=== PATIENT | female | born 1965 | race Two or more races ===

== ENCOUNTER 2021-01-27 07:34 | Day surgery (SDC) | payer BC, OTHER ==
[~2021-01-27 07:34] MED LIST: Glycopyrrolate 0.2 MG/ML SDV ONE; Lactated Ringers 1,000 ML IV SCH; Lidocaine 2% 5 ML SDV ONE; Midazolam 1 MG/ML 2 ML SDV ONE; Ondansetron 4 MG/2 ML SDV ONE; Propofol 200 MG/20 ML SDV ONE; Rocuronium Bromide 50 MG/5 ML Syringe ONE; Sodium Chloride 0.9% 10 ML SDV IV PRN; Sodium Chloride 0.9% 10 ML Syringe FLUSH PRN; Sodium Chloride 0.9% 2.5 ML Syringe FLUSH PRN; ceFAZolin 2 GM in Premix Bag 1 BAG IV ONE; fentaNYL 250 MCG/5 ML SDV ONE
[2021-01-27] MEDS ORDERED: Glycopyrrolate 0.2 MG/ML SDV ONE (07:51)
[2021-01-27] MEDS ORDERED: Ketorolac 30 MG/ML SDV ONE (07:51)
--- NOTE | 2021-01-27 08:11 | PCM.PREANE ---
Preanesthetic Assessment - Anesthesia/Transfusion/Family Hx Anesthesia History: Prior Anesthesia Without Reaction Family History of Anesthesia Reaction: No Transfusion History: No Prior Transfusion(s) Intubation History: Unknown - Review of Systems General: No Symptoms Pulmonary: No Symptoms Cardiovascular: No Symptoms Gastrointestinal: No Symptoms Neurological: No Symptoms Other: Reports: None - Physical Assessment Height: 5 ft 4 in Weight: 88.451 kg ASA Class: 2 Mental Status: Alert & Oriented x3 Airway Class: Mallampati = 3 Dentition: Reports: Normal Dentition Thyro-Mental Finger Breadths: 3 (very wide neck) Mouth Opening Finger Breadths: 3 ROM/Head Extension: Full Lungs: Clear to Auscultation, Normal Respiratory Effort Cardiovascular: Regular Rate, Regular Rhythm - Allergies Allergies/Adverse Reactions: Allergies Allergy/AdvReac Type Severity Reaction Status Date / Time doxycycline Allergy Rash Verified 01/23/21 12:21 Sulfa (Sulfonamide Allergy Rash Verified 01/23/21 12:21 Antibiotics) - Blood Blood Available: No - Anesthesia Plan Pre-Op Medication Ordered: None - Acknowledgements Anesthesia Type Planned: General Anesthesia Pt an Appropriate Candidate for the Planned Anesthesia: Yes Alternatives and Risks of Anesthesia Discussed w Pt/Guardian: Yes Pt/Guardian Understands and Agrees with Anesthesia Plan: Yes PreAnesthesia Questionnaire HEENT History: Reports: Other (See Below) Other HEENT History: wears glasses Cardiovascular History: Reports: High Cholesterol, Hypertension Respiratory History: Reports: None Gastrointestinal History: Reports: None, Hiatal Hernia Genitourinary History: Reports: None 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 breast) Dermatologic History: Reports: None - Past Surgical History Head Surgeries/Procedures: Reports: None HEENT Surgical History: Reports: None Cardiovascular Surgical History: Reports: None Respiratory Surgical History: Reports: None GI Surgical History: Reports: None Female Surgical History: Reports: Breast Biopsy, Cystectomy (left ovarian (l aparoscopic) 08/13), D&C, Mastectomy Other Female Surgeries/Procedures: rt radical mastectomy Endocrine Surgical History: Reports: None Neurological Surgical History: Reports: None Musculoskeletal Surgical History: Reports: None Oncologic Surgical History: Reports: Mastectomy Dermatological Surgical History: Reports: None - SUBSTANCE USE Tobacco Use Status *Q: Never Tobacco User Recreational Drug Use History: No - HOME MEDS Home Medications: Home Meds Aspirin [Ecotrin EC] 81 mg PO DAILY 08/19/19 [History] Losartan [Cozaar] 25 mg PO QAM 08/19/19 [History] Mirtazapine 15 mg PO BEDTIME 08/19/19 [History] PARoxetine HCL [Paxil] 30 mg PO BID 08/19/19 [History] Simvastatin 80 mg PO BEDTIME 08/19/19 [History] Venlafaxine [Effexor XR] 150 mg PO QAM 08/19/19 [History] Ibuprofen [Motrin] 400 mg PO Q6H PRN 01/23/21 [History] metFORMIN [Glucophage] 500 mg PO BID 01/23/21 [History] - CURRENT (IN HOUSE) MEDS Current Meds: Current Medications Lactated Ringer's (Ringers, Lactated) 1,000 mls @ 125 mls/hr IV ASDIRECTED JOSÉ MANUEL Sodium Chloride (Saline Flush) 2.5 ml FLUSH ASDIRECTED PRN PRN Reason: Keep Vein Open Sodium Chloride (Normal Saline) 10 ml IV ASDIRECTED PRN PRN Reason: IV Use Discontinued Medications Fentanyl (Sublimaze) Confirm Administered Dose 250 mcg .ROUTE .STK-MED ONE Stop: 01/27/21 07:25 Glycopyrrolate (Robinul) Confirm Administered Dose 0.4 mg .ROUTE .STK-MED ONE Stop: 01/27/21 07:26 Glycopyrrolate (Robinul) Confirm Administered Dose 0.6 mg .ROUTE .STK-MED ONE Stop: 01/27/21 07:52 Cefazolin Sodium/Dextrose 2 gm (/ Premix) 50 mls @ 100 mls/hr IV ONETIME ONE Stop: 01/27/21 05:29 Ketorolac Tromethamine (Toradol) Confirm Administered Dose 30 mg .ROUTE .STK-MED ONE Stop: 01/27/21 07:52 Lidocaine (Xylocaine-Mpf 2%) Confirm Administered Dose 5 ml .ROUTE .STK-MED ONE Stop: 01/27/21 07:26 Midazolam HCl (Versed 1 Mg/Ml) Confirm Administered Dose 2 mg .ROUTE .STK-MED ONE Stop: 01/27/21 07:25 Ondansetron HCl (Zofran) Confirm Administered Dose 4 mg .ROUTE .STK-MED ONE Stop: 01/27/21 07:26 Propofol (Diprivan 20 Ml) Confirm Administered Dose 200 mg .ROUTE .STK-MED ONE Stop: 01/27/21 07:24 Rocuronium Charlotte (Rocuronium Charlotte) Confirm Administered Dose 50 mg .ROUTE .STK-MED ONE Stop: 01/27/21 07:27
[2021-01-27] MEDS ORDERED: Acetaminophen 1,000 MG in Premix Bag 1 BAG IV PRN (08:17)
[2021-01-27] MEDS ORDERED: ceFAZolin 1 GM Vial ONE (08:18)
[2021-01-27] MEDS ORDERED: Sodium Chloride 0.9% 20 ML ONE (08:18)
[2021-01-27] MEDS ORDERED: Bupivacaine 0.25% 10 ML SDV ONE (08:31)
[2021-01-27] MEDS ORDERED: Methylene Blue 50 MG/10 ML Ampule ONE (08:31)
[2021-01-27 08:47] LABS: BLOOD UREA NITROGEN,BUN 16 mg/dL (7.0-18.0); CARBON DIOXIDE,CO2 27.9 mmol/L (21.0-32.0); CHLORIDE,CL 106 mmol/L (98-107); GLUCOSE RANDOM 128 mg/dL (74-106); POTASSIUM,K 3.8 mmol/L (3.5-5.1); SODIUM,NA 142 mmol/L (136-145)
[2021-01-27] MEDS ORDERED: HYDROmorphone 2 MG/ML Syringe ONE (09:35)
[2021-01-27] MEDS ORDERED: Furosemide 40 MG/4 ML VIAL ONE (09:38)
[2021-01-27] MEDS ORDERED: Fluorescein 5 ML Vial ONE (09:38)
[2021-01-27] MEDS ORDERED: ePHEDrine 50 MG/ML SDV ONE (10:20)
[2021-01-27] MEDS ORDERED: fentaNYL 100 MCG/2 ML SDV ONE (10:56)
[2021-01-27] MEDS ORDERED: Morphine 4 MG/ML Syringe IVPUSH PRN (11:14)
[2021-01-27] MEDS ORDERED: Ondansetron 4 MG/2 ML SDV IVPUSH PRN (11:14)
[2021-01-27] MEDS ORDERED: Promethazine 25 MG/ML SDV IM PRN (11:14)
[2021-01-27] MEDS ORDERED: Ketorolac 30 MG/ML SDV IVPUSH ONE (11:14)
--- NOTE | 2021-01-27 11:22 | PCM.OPNOTE ---
<Elizabeth Dallas - Last Filed: 01/27/21 11:15> - General Post-Op/Procedure Note Date of Surgery/Procedure: 01/27/21 Operative Procedure(s): Laparoscopic assisted vaginal hysterectomy, bilaterl salpingooophorectomy, cystoscopy, pelvic washings Findings: Uterus with bilateral fallopian tubes and bilateral ovaries - left ovary with cyst. Pre Op Diagnosis: Abnormal uterine bleeding - post-menopausal, symptomatic pelvic mass Post-Op Diagnosis: Same Anesthesia Technique: General ET Tube Primary Surgeon: Joellen Castro Secondary Surgeon: Radha Chen Squirrel Man: Elizabeth Dalals (MS4) Pathology: Uterus, bilateral fallopian tubes & ovaries with left ovarian cyst. Pelvic washings Fluid Replacement, Intraop: 2,500 EBL in mLs: 300 Complications: none known Condition: Stable <Joellen Castro - Last Filed: 01/27/21 13:36> - General Post-Op/Procedure Note Pre Op Diagnosis: Ovarian cyst 9 cm Free Text/Narrative:: Intake & Output 01/26/21 01/27/21 01/27/21 22:59 06:59 14:59 Intake Total 5400 Output Total 150 Balance 5250
[2021-01-27] MEDS: fentaNYL 100 MCG/2 ML SDV IVPUSH PRN ×2 (12:25→12:33)
--- NOTE | 2021-01-27 12:55 | PCM.POSTAN ---
POST ANESTHESIA ASSESSMENT - MENTAL STATUS Mental Status: Alert, Oriented - VITAL SIGNS Vital Signs: Last Vital Signs Temp 36.1 C 01/27/21 11:30 Pulse 93 01/27/21 12:46 Resp 14 01/27/21 12:46 BP 122/58 L 01/27/21 12:46 Pulse Ox 93 L 01/27/21 12:46 - RESPIRATORY Respiratory Status: Respiratory Rate WNL, Airway Patent, O2 Saturation Stable - CARDIOVASCULAR CV Status: Pulse Rate WNL, Blood Pressure Stable - GASTROINTESTINAL GI Status: No Symptoms - PAIN Pain Score: 2 - POST OP HYDRATION Hydration Status: Adequate & Stable - OBSERVATIONS Free Text/Narrative:: No anesthesia problems
[2021-01-27] MEDS: Lactated Ringers 1,000 ML IV SCH ×2 (13:07→21:15)
[2021-01-27] MEDS ORDERED: diphenhydrAMINE 50 MG/ML SDV IVPUSH ONE (13:32)
[2021-01-27] MEDS: Acetaminophen/oxyCODONE 325-5 MG Tab PO PRN ×2 (13:52→19:45)
--- NOTE | 2021-01-27 14:35 | OR ---
SURGEON: Joellen Castro M.D. DATE OF PROCEDURE: 01/27/2021 PREOPERATIVE DIAGNOSES: 1. Abnormal uterine bleeding. 2. Left ovarian cyst, 9 cm. POSTOPERATIVE DIAGNOSES: 1. Abnormal uterine bleeding. 2. Left ovarian cyst, 9 cm. PROCEDURES: Laparoscopic-assisted vaginal hysterectomy with bilateral salpingo-oophorectomy, pelvic washings, cystoscopy. PRIMARY SURGEON: Joellen Castro M.D. ASSISTANTS: 1. Radha Chen MD. 2. Gabriel Dallas MS4. ANESTHESIA: General endotracheal anesthesia. FLUIDS: 2500 mL of crystalloid. COMPLICATIONS: None known. FINDINGS: Boggy uterus with normal-appearing right tube and ovary. Left ovary with a large, approximately 8 to 9 cm cyst. DISPOSITION: The patient to PACU. SPECIMENS: To Pathology. PROCEDURE DETAILS: Annia is a 56-year-old female who has had ongoing difficulties with postmenopausal bleeding. Endometrial biopsy was benign. She also has another recurring ovarian cyst which is approximately 9 cm. At this time, she would like to proceed with definitive intervention in the form of a hysterectomy. She also wants both tubes and fallopian tubes removed given her history of DCIS of the breast. Risks of the procedure have been discussed. Proper consent obtained. The patient was taken to the operating room where she underwent general endotracheal anesthesia and was placed in modified dorsal lithotomy position. She was prepped and draped in the usual sterile fashion. SCDs to the lower extremities. Mccoy to gravity, backfilled with methylene blue. Received Ancef prophylactically, was prepped and draped in usual sterile fashion. Time-out was performed. Speculum was introduced in the vagina. The cervix was very flush with the vaginal wall. It was able to be grasped with a single-tooth tenaculum and gently dilated until a HUMI uterine manipulator was able to be introduced into the uterine cavity. Other than the manipulator, remainder of the vaginal instruments were now removed. Gloves changed. Attention turned abdominally. Infraumbilically, 0.25% Marcaine was introduced in the midline. Please see nurse's notes for total amount of local anesthesia dispensed during the procedure. A 5 mm infraumbilical midline sagittal skin incision was created. Tissue was dissected down through the fascia with a hemostat and then with direct visualization, introduced the 5 mm trocar with laparoscope in place, was able to visualize and entry into the peritoneal cavity. Pneumoperitoneum was achieved. A left and a right lower quadrant trocars were introduced after prepping these regions with 0.25% Marcaine and creating 5 mm skin incisions. The uterus overall was mobile. The right fallopian tube and ovary appeared normal. The left ovary was very distended with a large cyst that was initially seen on the anterior midline, however, it was left-sided. Overall, though, there were a few left pelvic sidewall adhesions that were quite thin and filmy, but the ovary overall was mobile. Attention was now turned to performing right side of the hysterectomy. The right fallopian tube and ovary were able to be secured and the infundibulopelvic ligament was able to be secured with LigaSure, cauterized, and transected. A further pedicle of the medial leaf of the broad ligament was able to be secured, cauterized, transected, and now with the LigaSure being introduced through the midline port, I was able to move along the remainder of the broad ligament through the round ligament through the upper portion of the cardinal ligament, base of the cardinal ligament. At this point, I was able to create a bladder flap by dissecting the uterovesical peritoneum and mobilizing the bladder away from the lower uterine segment and cervix. Attention was now turned to performing the left side of the hysterectomy. The adhesions along the left ovary were able now to be gently lysed and ovary was now mobilized away from the pelvic sidewall. The left fallopian tube was able to be visualized and the fallopian tube was now dissected using the LigaSure, cauterized, transected up to the level of the cornua and a window was created along the medial leaf of the broad ligament in order to work through the remaining of the infundibulopelvic ligament and secure this. At this point, we had very good visualization of the uterus and before moving through the IFP pedicle, I felt it was prudent to continue to move along the uterine vessels and pedicles and come back and work with the remaining left ovarian cyst. The medial leaf of the broad ligament was able be secured with LigaSure, cauterized, and transected through the round ligament through the cardinal ligament and then once again to the upper base of the uterosacral ligament. Once again, the bladder was nicely mobilized away from the lower uterine segment prior to this. The attention was now turned to isolating the remainder of the infundibulopelvic ligament. I was able to identify this and using LigaSure, I was able to secure pedicle, cauterize, and transect with two separate pedicles as it was quite thickened from the increased vasculature to the ovarian cyst. Prior to proceeding with any of the hysterectomy, when we first entered, pelvic washings were obtained with normal saline and sent to pathology for further analysis. At this point, the left fallopian tube and ovary were now completely free from the pelvic sidewall and attention was turned vaginally. The HUMI uterine manipulator was now removed from the uterus. The weighted speculum and anterior sidewall vaginal Deavers were placed. The cervix was grasped at the anterior and posterior lips with Henrique clamps. The cervix was circumscribed with Bovie cautery and the overlying mucosa was dissected fully from the underlying peritoneum. Posteriorly, the peritoneum was entered sharply. A longer weighted speculum replaced the shorter. Anteriorly, anterior cul-de-sac was also entered with Metzenbaum scissors and the bladder was now mobilized away from the operative field. The bladder was released. Using Kelby clamps, the uterosacral ligaments on either side were secured, transected, and suture ligated. A further pedicle on either side was now be able to be secured, transected, and suture ligated. At this point, the uterus was mobile and was removed and handed off to career and technology education teacher. Bilateral fallopian tubes and ovaries remained attached to the specimen and will be sent to Pathology for analysis. There was some oozing along the uterosacral ligaments just above these pedicles on either side with the perforating vessels. These were each grasped with Bill clamps and suture ligated. Hemostasis thereafter evident. The vagina was very atrophic and thin. The uterosacral ligament on either side was plicated to the vaginal apex. Hemostasis appeared was evident other than along the posterior cuff. The cuff was now closed using 0 Vicryl in a continuing running locked fashion with re-plication in the midline where the vagina was particularly thin. Hemostasis appeared evident at this juncture. The Mccoy balloon was desufflated, the catheter was removed, and using normal saline as distention media, I was able to introduce a cystoscope into the bladder. Dome of the bladder was able to be visualized followed by the right ureteral orifice and left ureteral orifice. IV fluorescein had been introduced and fluorescein-dyed urine was seen streaming from the right ureteral orifice followed by the left, helping to ensure ureteral patency. The bladder was now drained. Mccoy catheter was replaced. The vaginal cuff once again inspected, found to be hemostatic. Gloves changed. Attention returned abdominally. Pneumoperitoneum was once again achieved. The pelvis was closely inspected. The pedicles appeared hemostatic. The pelvis was irrigated, suction dried, once again appeared hemostatic. Kim was now gently placed along the pedicles as well just like with her vagina, the tissue was just slightly oozy and inflamed. At this juncture, hemostasis was evident. Pneumoperitoneum was released. The laparoscopic instruments were removed. Trocars were removed after pneumoperitoneum was released as much as possible. The skin edges were reapproximated using 4-0 Monocryl in a subcuticular fashion. Sponge, instrument, and needle counts were correct x2. The patient had tolerated the procedure well overall. She will go to PACU in stable condition, specimens to Pathology. CHARISMA / CORBIN /[id number] ROVERTO
[2021-01-27] MEDS ORDERED: Ketorolac 15 MG/ML SDV IVPUSH PRN (17:30)
[2021-01-27] MEDS: Docusate Sodium 100 MG Cap PO SCH (21:19)
[2021-01-27] MEDS: Belladonna Alkaloids/Opium 16.2-30 MG Supp RECTAL PRN (23:40)
[2021-01-28] MEDS: Acetaminophen/oxyCODONE 325-5 MG Tab PO PRN ×2 (04:16→11:05)
[2021-01-28 07:04] LABS: BLOOD UREA NITROGEN,BUN 8 mg/dL (7.0-18.0); CARBON DIOXIDE,CO2 30.8 mmol/L (21.0-32.0); CHLORIDE,CL 105 mmol/L (98-107); GLUCOSE RANDOM 123 mg/dL (74-106); POTASSIUM,K 3.6 mmol/L (3.5-5.1); SODIUM,NA 139 mmol/L (136-145)
[2021-01-28] MEDS ORDERED: diphenhydrAMINE 25 MG Cap PO ONE (08:05)
[2021-01-28] MEDS: Docusate Sodium 100 MG Cap PO SCH (08:43)
--- NOTE | 2021-01-28 10:44 | PCM.SURGPN ---
- General Info Date of Service: 01/28/21 POD#: 1 Functional Status: Reports: Pain Controlled, Tolerating Diet, Ambulating, Urinating - Review of Systems General: Reports: Fatigue. Denies: Fever, Weakness Pulmonary: Denies: Shortness of Breath Cardiovascular: Denies: Chest Pain, Palpitations, Lightheadedness Gastrointestinal: Denies: Abdominal Pain, Nausea, Vomiting Genitourinary: Denies: Flank Pain Musculoskeletal: Reports: No Symptoms Skin: Reports: No Symptoms Neurological: Reports: No Symptoms Psychiatric: Reports: No Symptoms - Patient Data Vitals - Most Recent: Last Vital Signs Temp 37.2 C 01/28/21 08:39 Pulse 102 H 01/28/21 08:39 Resp 16 01/28/21 08:39 BP 98/54 L 01/28/21 08:39 Pulse Ox 97 01/28/21 08:39 Weight - Most Recent: 88.451 kg I&O - Last 24 Hours: Intake & Output 01/27/21 01/28/21 01/28/21 22:59 06:59 14:59 Intake Total 300 2870 Output Total 1500 Balance 300 1370 Lab Results Last 24 Hrs: Laboratory Results - last 24 hr 01/28/21 01/28/21 Range/Units 05:52 05:52 WBC 6.85 (4.0-11.0) K/uL RBC 3.19 L (4.30-5.90) M/uL Hgb 9.2 L (12.0-16.0) g/dL Hct 28.8 L (36.0-46.0) % MCV 90.3 (80.0-98.0) fL MCH 28.8 (27.0-32.0) pg MCHC 31.9 (31.0-37.0) g/dL RDW Std Deviation 48.4 (28.0-62.0) fl RDW Coeff of Kenia 15 (11.0-15.0) % Plt Count 334 (150-400) K/uL MPV 8.60 (7.40-12.00) fL Neut % (Auto) 65.3 (48.0-80.0) % Lymph % (Auto) 29.1 (16.0-40.0) % Hand % (Auto) 5.3 (0.0-15.0) % Eos % (Auto) 0.3 (0.0-7.0) % Baso % (Auto) 0.0 (0.0-1.5) % Neut # (Auto) 4.5 (1.4-5.7) K/uL Lymph # (Auto) 2.0 (0.6-2.4) K/uL Hand # (Auto) 0.4 (0.0-0.8) K/uL Eos # (Auto) 0.0 (0.0-0.7) K/uL Baso # (Auto) 0.0 (0.0-0.1) K/uL Nucleated RBC % 0.0 /100WBC Nucleated RBCs # 0 K/uL Sodium 139 (136-145) mmol/L Potassium 3.6 (3.5-5.1) mmol/L Chloride 105 (98-107) mmol/L Carbon Dioxide 30.8 (21.0-32.0) mmol/L BUN 8 (7.0-18.0) mg/dL Creatinine 0.9 (0.6-1.0) mg/dL Est Cr Clr Drug Dosing 59.55 mL/min Estimated GFR (MDRD) > 60.0 ml/min Glucose 123 H (74-106) mg/dL Calcium 7.5 L (8.5-10.1) mg/dL Med Orders - Current: Current Medications Belladonna Alkaloids/Opium (B & O Supprettes No. 15a) 1 supp RECTAL Q4H PRN PRN Reason: Abdominal Pain Last Admin: 01/27/21 23:40 Dose: 1 supp Documented by: Docusate Sodium (Colace) 100 mg PO BID [facility] Last Admin: 01/28/21 08:43 Dose: 100 mg Documented by: Acetaminophen 1,000 mg/ Premix 100 mls @ 400 mls/hr IV Q6H PRN PRN Reason: Pain Last Admin: 01/27/21 12:28 Dose: 400 mls/hr Documented by: Lactated Ringer's (Ringers, Lactated) 1,000 mls @ 125 mls/hr IV ASDIRECTED [facility] Last Admin: 01/27/21 21:15 Dose: 125 mls/hr Documented by: Ketorolac Tromethamine (Toradol) 15 mg IVPUSH Q6H PRN PRN Reason: Pain (severe 7-10) Stop: 02/01/21 17:31 Last Admin: 01/28/21 08:42 Dose: 15 mg Documented by: Morphine Sulfate (Morphine) 4 mg IVPUSH Q2H PRN PRN Reason: Pain (severe 7-10) Last Admin: 01/27/21 21:19 Dose: 4 mg Documented by: Ondansetron HCl (Zofran) 4 mg IVPUSH Q6H PRN PRN Reason: Nausea/Vomiting Last Admin: 01/27/21 13:51 Dose: 4 mg Documented by: Oxycodone/Acetaminophen (Percocet 325-5 Mg) 1 tab PO Q4H PRN PRN Reason: Pain (moderate 4-6) Last Admin: 01/27/21 19:45 Dose: 1 tab Documented by: Oxycodone/Acetaminophen (Percocet 325-5 Mg) 2 tab PO Q4H PRN PRN Reason: Pain (moderate 4-6) Last Admin: 01/28/21 04:16 Dose: 2 tab Documented by: Promethazine HCl (Phenergan) 25 mg IM Q6H PRN PRN Reason: Nausea/Vomiting Sodium Chloride (Saline Flush) 2.5 ml FLUSH ASDIRECTED PRN PRN Reason: Keep Vein Open Sodium Chloride (Normal Saline) 10 ml IV ASDIRECTED PRN PRN Reason: IV Use Discontinued Medications Bupivacaine HCl (Sensorcaine-Mpf 0.25%) Confirm Administered Dose 20 ml .ROUTE .STK-MED ONE Stop: 01/27/21 08:32 Cefazolin Sodium (Ancef) Confirm Administered Dose 2 gm .ROUTE .STK-MED ONE Stop: 01/27/21 08:19 Diphenhydramine HCl (Benadryl) 25 mg IVPUSH ONETIME ONE Stop: 01/27/21 13:33 Last Admin: 01/27/21 13:52 Dose: 25 mg Documented by: Diphenhydramine HCl (Benadryl) 25 mg PO ONETIME ONE Stop: 01/28/21 08:06 Last Admin: 01/28/21 08:26 Dose: 25 mg Documented by: Ephedrine Sulfate (Ephedrine Sulfate) Confirm Administered Dose 50 mg .ROUTE .STK-MED ONE Stop: 01/27/21 10:21 Fentanyl (Sublimaze) Confirm Administered Dose 250 mcg .ROUTE .STK-MED ONE Stop: 01/27/21 07:25 Fentanyl (Sublimaze) 50 mcg IVPUSH Q5M PRN PRN Reason: Pain Last Admin: 01/27/21 12:33 Dose: 50 mcg Documented by: Fentanyl (Sublimaze) Confirm Administered Dose 100 mcg .ROUTE .STK-MED ONE Stop: 01/27/21 10:57 Fluorescein Sodium (Ak-Fluor) Confirm Administered Dose 5 ml .ROUTE .STK-MED ONE Stop: 01/27/21 09:39 Furosemide (Lasix) Confirm Administered Dose 40 mg .ROUTE .STK-MED ONE Stop: 01/27/21 09:39 Glycopyrrolate (Robinul) Confirm Administered Dose 0.4 mg .ROUTE .STK-MED ONE Stop: 01/27/21 07:26 Glycopyrrolate (Robinul) Confirm Administered Dose 0.6 mg .ROUTE .STK-MED ONE Stop: 01/27/21 07:52 Hydromorphone HCl (Dilaudid) Confirm Administered Dose 2 mg .ROUTE .STK-MED ONE Stop: 01/27/21 09:36 Cefazolin Sodium/Dextrose 2 gm (/ Premix) 50 mls @ 100 mls/hr IV ONETIME ONE Stop: 01/27/21 05:29 Last Admin: 01/27/21 13:13 Dose: Not Given Documented by: Lactated Ringer's (Ringers, Lactated) 1,000 mls @ 125 mls/hr IV ASDIRECTED [facility] Last Admin: 01/27/21 08:11 Dose: 125 mls/hr Documented by: Sodium Chloride (Normal Saline) Confirm Administered Dose 20 mls @ as directed .ROUTE .STK-MED ONE Stop: 01/27/21 08:19 Ketorolac Tromethamine (Toradol) Confirm Administered Dose 30 mg .ROUTE .STK-MED ONE Stop: 01/27/21 07:52 Ketorolac Tromethamine (Toradol) 15 mg IVPUSH ONETIME ONE Stop: 01/27/21 11:15 Last Admin: 01/27/21 11:00 Dose: Not Given Documented by: Lidocaine (Xylocaine-Mpf 2%) Confirm Administered Dose 5 ml .ROUTE .STK-MED ONE Stop: 01/27/21 07:26 Methylene Blue (Provayblue) Confirm Administered Dose 50 mg .ROUTE .STK-MED ONE Stop: 01/27/21 08:32 Midazolam HCl (Versed 1 Mg/Ml) Confirm Administered Dose 2 mg .ROUTE .STK-MED ONE Stop: 01/27/21 07:25 Ondansetron HCl (Zofran) Confirm Administered Dose 4 mg .ROUTE .STK-MED ONE Stop: 01/27/21 07:26 Propofol (Diprivan 20 Ml) Confirm Administered Dose 200 mg .ROUTE .STK-MED ONE Stop: 01/27/21 07:24 Rocuronium [place] (Rocuronium [place]) Confirm Administered Dose 50 mg .ROUTE .STK-MED ONE Stop: 01/27/21 07:27 - Exam Wound/Incisions: Dressing Dry and Intact General: Alert, Oriented Lungs: Normal Respiratory Effort Cardiovascular: Regular Rate, Regular Rhythm GI/Abdominal Exam: Normal Bowel Sounds, Soft Extremities: Pedal Edema (trace). No: Ciarra's Sign Skin: Warm, Dry, Intact Neurological: No New Focal Deficit Psy/Mental Status: Alert, Normal Affect, Normal Mood Sepsis Event Note - Evaluation Sepsis Screening Result: No Definite Risk - Focused Exam Vital Signs: Vital Signs Temp Pulse Resp BP Pulse Ox 01/28/21 08:39 37.2 C 102 H 16 98/54 L 97 01/28/21 04:00 36.8 C 106 H 16 105/65 98 01/28/21 01:00 36.8 C 104 H 17 105/58 L 97 01/28/21 00:00 37.2 C 112 H 16 93/54 L 95 - Problem List & Annotations (1) Status post hysterectomy SNOMED Code(s): 687221709, 748575749, 633991778 Code(s): Z90.710 - ACQUIRED ABSENCE OF BOTH CERVIX AND UTERUS Status: Acute Current Visit: Yes - Problem List Review Problem List Initiated/Reviewed/Updated: Yes - My Orders Last 24 Hours: Active Orders 24 hr Category Date Time Status Patient Status [ADT] Routine ADT 01/27/21 11:15 Active Antiembolic Devices [RC] Q8H Care 01/27/21 11:15 Active Notify Provider Intake and Out [RC] ASDIRECTED Care 01/27/21 11:15 Active Notify Provider Vital Signs [RC] ASDIRECTED Care 01/27/21 11:15 Active Oxygen Therapy [RC] ASDIRECTED Care 01/27/21 11:15 Active RT Incentive Spirometry [RC] Q2HWA Care 01/27/21 11:15 Active Ready for Discharge [RC] PER UNIT ROUTINE Care 01/28/21 10:40 Ordered Up ad Jessica [RC] PER UNIT ROUTINE Care 01/27/21 11:15 Active Urinary Catheter Removal [RC] Per Unit Routine Care 01/27/21 11:15 Active Regular Diet [DIET] Diet 01/27/21 Lunch Active Acetaminophen/oxyCODONE [Percocet 325-5 MG] Med 01/27/21 11:14 Active 1 tab PO Q4H PRN Acetaminophen/oxyCODONE [Percocet 325-5 MG] Med 01/27/21 11:14 Active 2 tab PO Q4H PRN Belladonna/Opium [B & O Supprettes No. 15A] Med 01/27/21 11:14 Active 1 supp RECTAL Q4H PRN Docusate Sodium [Colace] Med 01/27/21 21:00 Active 100 mg PO BID Ketorolac [Toradol] Med 01/27/21 17:30 Active 15 mg IVPUSH Q6H PRN Lactated Ringers [Ringers, Lactated] 1,000 ml Med 01/27/21 11:15 Active IV ASDIRECTED Morphine Med 01/27/21 11:14 Active 4 mg IVPUSH Q2H PRN Ondansetron [Zofran] Med 01/27/21 11:14 Active 4 mg IVPUSH Q6H PRN Promethazine [Phenergan] Med 01/27/21 11:14 Active 25 mg IM Q6H PRN Perineal Care [OM.PC] Per Unit Routine Oth 01/27/21 11:15 Ordered Peripheral IV Discontinue [OM.PC] Routine Oth 01/27/21 11:15 Ordered Sequential Compression Device [OM.PC] Per Unit Routine Oth 01/27/21 11:15 Ordered Resuscitation Status Routine Resus Stat 01/27/21 11:14 Ordered Medication Orders Belladonna Alkaloids/Opium (B & O Supprettes No. 15a) 1 supp RECTAL Q4H PRN PRN Reason: Abdominal Pain Last Admin: 01/27/21 23:40 Dose: 1 supp Documented by: PASTGEN Docusate Sodium (Colace) 100 mg PO BID [facility] Last Admin: 01/28/21 08:43 Dose: 100 mg Documented by: Admin: 01/27/21 21:19 Dose: 100 mg Documented by: NELLY Acetaminophen 1,000 mg/ Premix 100 mls @ 400 mls/hr IV Q6H PRN PRN Reason: Pain Last Admin: 01/27/21 12:28 Dose: 400 mls/hr Documented by: MARCUS Lactated Ringer's (Ringers, Lactated) 1,000 mls @ 125 mls/hr IV ASDIRECTED [facility] Last Admin: 01/27/21 21:15 Dose: 125 mls/hr Documented by: Infusion: 01/27/21 21:07 Dose: 125 mls/hr Documented by: Admin: 01/27/21 13:07 Dose: 125 mls/hr Documented by: KISHORE Ketorolac Tromethamine (Toradol) 15 mg IVPUSH Q6H PRN PRN Reason: Pain (severe 7-10) Stop: 02/01/21 17:31 Last Admin: 01/28/21 08:42 Dose: 15 mg Documented by: AKIL Morphine Sulfate (Morphine) 4 mg IVPUSH Q2H PRN PRN Reason: Pain (severe 7-10) Last Admin: 01/27/21 21:19 Dose: 4 mg Documented by: NELLY Ondansetron HCl (Zofran) 4 mg IVPUSH Q6H PRN PRN Reason: Nausea/Vomiting Last Admin: 01/27/21 13:51 Dose: 4 mg Documented by: KISHORE Oxycodone/Acetaminophen (Percocet 325-5 Mg) 1 tab PO Q4H PRN PRN Reason: Pain (moderate 4-6) Last Admin: 01/27/21 19:45 Dose: 1 tab Documented by: Admin: 01/27/21 13:52 Dose: 1 tab Documented by: KISHORE Oxycodone/Acetaminophen (Percocet 325-5 Mg) 2 tab PO Q4H PRN PRN Reason: Pain (moderate 4-6) Last Admin: 01/28/21 04:16 Dose: 2 tab Documented by: PASTGEN Promethazine HCl (Phenergan) 25 mg IM Q6H PRN PRN Reason: Nausea/Vomiting Sodium Chloride (Saline Flush) 2.5 ml FLUSH ASDIRECTED PRN PRN Reason: Keep Vein Open Sodium Chloride (Normal Saline) 10 ml IV ASDIRECTED PRN PRN Reason: IV Use - Assessment Assessment (Free Text/Narrative):: POD 1 status post LAVH/BSO/Cystoscopy and pelvic washings - Plan Plan (Free Text/Narrative):: VS are reassuring with good urine output. Labs are reassuring. Patient is ambulating and voiding without difficulty. Tolerating regular diet. Pain now controlled with oral pain meds. Feels ready to go home. Discharge instructions reviewed. Follow up at [facility] later this week and 6 weeks. Infection and bleeding warnings reviewed. May resume home meds. Discharge to home.
[2021-01-28] MEDS: Belladonna Alkaloids/Opium 16.2-30 MG Supp RECTAL PRN (11:06)
== END 2021-01-28 12:00 | disposition home or self-care (01) ==
LOC: MW.SDS 07:34 → MW.MS 12:30 → MW.SDS 01-28 12:00
PROVIDERS: ATTEND Obstetrics & Gynecology
DX: D27.1 Benign neoplasm of left ovary (principal); N83.201 Unspecified ovarian cyst, right side; N80.0 Endometriosis of uterus; N88.8 Other specified noninflammatory disorders of cervix uteri; E78.00 Pure hypercholesterolemia, unspecified; I10 Essential (primary) hypertension; E66.9 Obesity, unspecified; Z68.33 Body mass index [BMI] 33.0-33.9, adult; Z79.82 Long term (current) use of aspirin; Z79.899 Other long term (current) drug therapy; Z98.890 Other specified postprocedural states; Z88.1 Allergy status to other antibiotic agents; Z88.2 Allergy status to sulfonamides
CPT/HCPCS: 00944; 36415; 80048; 84703; 85025; 85027; 86850; 86900; 86901; 88309; A9270-GY; J0131; J0690; J1170; J1200; J1885; J1940; J2250; J2270; J2405; J2704; J3010; J3490; J7120